=== PATIENT | female | born 1995 | race Caucasian/White ===

== ENCOUNTER 2021-02-25 11:10 | Emergency (ER) | payer OTHER, SELFPAY ==
--- NOTE | ~2021-02-25 | US_ITS ---
EXAMINATION: US pelvic complete EXAM DATE: 02/25/2021 12:59 INDICATION: right adnexal tenderness, eval for torsion. Abdominal cramping. TECHNIQUE: Pelvic transabdominal sonogram was performed. There are multiple grayscale and Doppler im ages available for interpretation. There is no prior study for comparison. FINDINGS: Uterus measures 8.8 x 4.5 x 6.0 cm, is anteverted and morphologically normal. Endometrial stripe measures 12 mm, within normal limits. There is no free pelvic fluid. Right adnexa: The ovary measures 2.2 x 1.4 x 1.5 cm and is morphologically normal. Ovarian vascular f low confirmed. Left adnexa: The ovary measures 1.6 x 1.2 x 1.1 cm and is morphologically normal. Ovarian vascular fl ow confirmed. IMPRESSION: 1. Unremarkable pelvic ultrasound exam. Reviewed, dictated and finalized at location A.
[2021-02-25 11:16] VITALS: BP 147/109; PULSE 101; RESP 18; TEMP 36.4; O2SAT 96
[2021-02-25 11:53] VITALS: BP 126/68; PULSE 62; RESP 16; TEMP 36.8; O2SAT 100
--- NOTE | 2021-02-25 11:57 | ED.ABDPAIN ---
HPI - Abdominal Pain General Chief Complaint: Abdominal Pain Stated Complaint: Menstral pain Time Seen by Provider: 02/25/21 11:57 Source: patient Mode of arrival: ambulatory Limitations: no limitations History of Present Illness HPI narrative: The patient is a 25 yo female , post pardum 3 months, presenting for evaluation of right lower quadrant pain. Pain is radiating into her right back. Pt denies chest pain or dyspnea. Patient also with starts of menses today. No heavy bleeding. Not soaking through one pad per hour. Pt reports mild cramping right lower quadrant pain. Pt reports mild nausea with subjective fever. No chills. No vomiting. No painful urination, frequency. No diarrhea or constipation. Pt without history of COVID or vaccination. Pt states cramping is increased from typical menstruation. This is second menses since delivery of infant three months ago. Pts OBGYN as [facility] is Dr. Keith. Pt states she has been sexually active. She has a history of chlamydia in 2018 that was treated. She is not using any contraception. Related Data Home Medications Medication Instructions Recorded Confirmed No Home Medications 02/25/21 02/25/21 Allergies Allergy/AdvReac Type Severity Reaction Status Date / Time codeine Allergy Unknown Unknown Verified 02/25/21 11:57 sweet potato Allergy Unknown Unknown Verified 02/25/21 11:57 Review of Systems Review of Systems: CONSTITUTIONAL: Denies fever, chills, or sweats. EYES: Denies visual changes, redness, or discharge. ENT: Denies rhinorrhea, congestion, sore throat, or otalgia. CARDIOVASCULAR: Denies chest pain, palpitations, or edema. RESPIRATORY: Denies cough or dyspnea. GASTROINTESTINAL: Reports abdominal pain GENITOURINARY: Denies dysuria or hematuria. Reports vaginal bleeding SKIN: Denies rash or itching. MUSCULOSKELETAL: Denies back pain, joint pain, or myalgia. NEUROLOGIC: Denies headache, numbness, or weakness. [facility] Social History Social History (Updated 02/25/21 @ 12:19 by Randa Desai MD) Smoking status: Never smoker Alcohol intake: never Substance use: never Gender identity (if verbalized by the patient): Female Exam Narrative: GENERAL: Awake, alert, conversant HEAD: Normocephalic, atraumatic. EYES: PERRLA and EOMI. ENT: Nares clear, no rhinorrhea or epistaxis. Mucous membranes moist. NECK: Supple. CHEST: No respiratory distress, breathing even and non labored HEART: Regular rate, sinus rhythm ABDOMEN:Non distended, mild tenderness, negative McBurney's point tenderness Labia majora and minora normal without lesions. Vagina with small amount of blood. No cervical motion tenderness. There is right and left adnexal tenderness, no other discharge present. EXTREMITIES: Normal range of motion. No edema. SKIN: Warm, dry, no rash. NEURO:No focal deficits. Alert and oriented x3 Course Vital Signs Vital signs: Vital Signs Temperature 36.4 C 02/25/21 11:16 Pulse Rate 101 H 02/25/21 11:16 Respiratory Rate 18 02/25/21 11:16 Blood Pressure 147/109 H 02/25/21 11:16 Pulse Oximetry 96 02/25/21 11:16 Temperature 36.8 C 02/25/21 11:53 Pulse Rate 88 02/25/21 13:44 Respiratory Rate 16 02/25/21 13:44 Blood Pressure 133/85 02/25/21 13:44 Pulse Oximetry 100 02/25/21 13:44 MDM - Abdominal Pain MDM Narrative Medical decision making narrative: Patient presenting for evaluation of vaginal bleeding and lower abdominal pain. At the time of assessment, ABCs are intact and vital signs are stable. Physical exam is notable for mild right lower quadrant abdominal pain without rebound or rigidity. Mild cramping pain in the suprapubic region. Patient is afebrile. Appendicitis seems unlikely given symptoms. Patient does have a mild leukocytosis. No significant anemia. On pelvic exam, there is no brisk bleeding. No large blood clots. Bedside urine test is positive. Patient has been sexually active, not currentl
--- NOTE | 2021-02-25 12:03 | PC.NURSE ---
pt reports RLQ cramping radiates down her right leg and is causing vaginal pressure. pt states she has scant amount of vaginal bleeding.
--- NOTE | 2021-02-25 12:11 | ECG_ITS ---
Measurements Intervals [place] Rate: 77 P: 36 FL: 121 QRS: 72 QRSD: 80 T: 41 QT: 401 QTc: 455 Interpretive Statements SINUS RHYTHM WITH MARKED SINUS ARRHYTHMIA BASELINE ARTIFACT- I, II, III, AVR, AVL, V1, V6 NORMAL ECG Electronically Signed On 02-25-2021 13:00:07 CDT by Jass Art D.O.
[2021-02-25 12:41] LABS: Basophils Percent Auto 0.3 % (0.2-1.2); Eosinophils Absolute Auto 0.1 K/mm3 (0-0.3); Eosinophils Percent Auto 0.8 % (0-4.4); Hematocrit 42.8 % (37.0-47.0); Hemoglobin 13.5 g/dL (12.0-15.0); Immature Granulocyte Absolute 0.06 K/mm3 (0.00-0.031); Immature Granulocyte Percent A 0.5 % (0-0.5); Lymphocytes Absolute Auto 1.41 K/mm3 (0.9-3.2); Mean Corpuscular HGB Conc 31.5 g/dl (32-36); Mean Corpuscular Hemoglobin 28.7 pg (26-34); Mean Corpuscular Volume 90.9 fl (80-100); Mean Platelet Volume 9.6 fl (7.4-10.4); Monocytes Absolute Auto 0.5 K/mm3 (0.1-0.6); Monocytes Percent Auto 4.2 % (2.6-8.5); Neutrophils Absolute Auto 9.7 K/mm3 (1.3-6.7); Neutrophils Percent Auto 82.2 % (45.5-73.1); Platelet Count Result 297 k/mm3 (150-375); Red Blood Count 4.71 M/mm3 (4.2-5.4); Red Cell Distribution Width 13.7 % (11.5-14.5); White Blood Count 11.8 K/mm3 (4.5-10.0)
[2021-02-25 13:10] LABS: Partial Thromboplastin Time 29.8 SECONDS (22.3-36.8); Prothrombin Time 12.8 Seconds (11.1-14.7)
[2021-02-25 13:13] LABS: Add Urine Microscopic? YES; Appearance Urine Cloudy (Clear); Bacteria Urine Trace /hpf; Bilirubin Urine Negative (Negative); Blood Urine 3+ (Negative); Color Urine Red (Yellow); Glucose Urine UA Negative (Negative); Ketones Urine 1+ mg/dL (Negative); Leukocyte Esterase Ur Trace LEU/UL (Negative); Mucus Urine Rare /lpf; Nitrate Urine Negative (Negative); Protein Urine 2+ mg/dL (Negative); RBC Urine 51-75 /hpf (0-2); WBC Urine 0-3 /hpf
[2021-02-25 13:14] LABS: Specific Grav Ur 1.031 (1.001-1.035)
[2021-02-25] MEDS: ACETAMINOPHEN 500 MG TABLET 1000 MG PO (13:14)
[2021-02-25] MEDS: SODIUM CHLORIDE 0.9% IV 1,000 ML 999 ML IV CONT (13:15)
[2021-02-25 13:28] LABS: Alanine Aminotransferase 22 U/L (4-35); Albumin Level 4.8 g/dL (3.5-5.1); Alkaline Phosphatase 106 U/L (38-126); Anion Gap 7 mmol/L (8-16); Aspartate Amino Transferase 30 U/L (14-36); Bilirubin,Total 0.6 mg/dL (0.2-1.3); Blood Urea Nitrogen 9 mg/dL (7-17); Calcium 9.6 mg/dL (8.4-10.2); Carbon Dioxide 23 mmol/L (22-30); Chloride 108 mmol/L (98-107); Estimated CRCL calculation 122 ml/min; Estimated Glomerular Filt Rate > 60; Glucose 116 mg/dL (65-110); Lipase 59 U/L (23-300); Potassium 4.3 mmol/L (3.4-5.0); Sodium 138 mmol/L (137-145)
[2021-02-25 13:44] VITALS: BP 133/85; PULSE 88; RESP 16; O2SAT 100
[2021-02-25 13:44] LABS: Beta HCG Quantitative 232.66 mIU/ML
[2021-02-25 13:59] LABS: Thyroid Stimulating Hormone 0.645 uIU/mL (0.465-4.680)
[2021-02-25 15:57] VITALS: BP 147/88; PULSE 79; RESP 16; O2SAT 98
== END 2021-02-25 16:00 | disposition home or self-care (01) ==
PROVIDERS: Emergency Provider Emergency Medicine; PCP Internal Medicine
DX: O46.90 Antepartum hemorrhage, unspecified, unspecified trimester (principal); Z3A.00 Weeks of gestation of pregnancy not specified
CPT/HCPCS: 36415; 76856; 80053; 81001; 81025; 83690; 84443; 84702; 85025; 85461; 85610; 85730; 87070; 87491; 87591; 87808; 93005; 96360; 99284; A9270; J7030

== ENCOUNTER 2021-04-23 09:51 | Emergency (ER) | payer OTHER, SELFPAY ==
[2021-04-23 10:03] VITALS: BP 140/70; PULSE 85; RESP 16; TEMP 36.3; O2SAT 99
--- NOTE | 2021-04-23 10:08 | ED.GENADULT ---
HPI - General Adult General Chief complaint: Dental/Oral Stated complaint: Tooth Pain Time Seen by Provider: 04/23/21 09:56 Source: patient Mode of arrival: ambulatory Limitations: no limitations History of Present Illness HPI narrative: 26 y/o female. PMHx none reported. Presents to [facility] today with acute complaints of RT upper dental pain, worsening in the past 48 hours. She reports increased dental pain and swelling, refractory to home and OTC remedies. No oral or dental trauma. No fevers, involuntary drooling. Pt is a daily cigarette smoker. She is not actively established with a dentist per report. No additional acute c/o illness upon PE. Related Data Allergies Allergy/AdvReac Type Severity Reaction Status Date / Time codeine Allergy Unknown Unknown Verified 04/23/21 10:07 sweet potato Allergy Unknown Unknown Verified 04/23/21 10:07 Review of Systems Review of Systems: CONSTITUTIONAL: Denies fever, chills, sweats. EYES: Denies visual changes, redness, discharge. ENT: Denies rhinorrhea, congestion, sore throat, otalgia. Positive Tooth/dental pain. CARDIOVASCULAR: Denies chest pain, palpitations, edema. RESPIRATORY: Denies dyspnea, wheezing, cough GASTROINTESTINAL: Denies abdominal pain, nausea, vomiting, diarrhea. GENITOURINARY: Denies dysuria, hematuria, abnormal discharge SKIN: Denies rash or itching. MUSCULOSKELETAL: Denies acute back pain, joint pain, or myalgia. NEUROLOGIC: Denies numbness, or focal weakness. PSYCHIATRIC: Denies anxiety or depression. All systems reviewed & are unremarkable except as noted in HPI and below PMFSH Social History Social History Smoking status: Never smoker Alcohol intake: never Substance use: never Gender identity (if verbalized by the patient): Female Exam Narrative: GENERAL: This is a well-nourished, well-developed adult, in no apparent distress. HEAD: normocephalic, atraumatic. EYES: PERRL. Sclera clear/white. EARS: External ears normal, auditory canals clear and without drainage, TMs normal. NOSE: External nose normal. THROAT: Mucous membranes moist, posterior pharynx clear. No exudates. MOUTH: With mild soft tissue swelling and tenderness surrounding molar #2. Widespread dental decay. No fluctuance or appreciable abscess to site. NECK: Neck supple, non-tender without lymphadenopathy, masses or thyromegaly. CARDIOVASCULAR: Regular rate and rhythm without murmurs, gallops, or rubs. RESPIRATORY: Clear to auscultation. GASTROINTESTINAL: Abdomen soft, non-tender, nondistended. SKIN: warm, intact with no suspicious lesions. NEURO: Alert, active, and age appropriate. No focal neurologic deficits. Course Vital Signs Vital signs: Vital Signs Temperature 36.3 C L 04/23/21 10:03 Pulse Rate 85 04/23/21 10:03 Respiratory Rate 16 04/23/21 10:03 Blood Pressure 140/70 04/23/21 10:03 Pulse Oximetry 99 04/23/21 10:03 Temperature 36.3 C L 04/23/21 10:03 Pulse Rate 85 04/23/21 10:03 Respiratory Rate 16 04/23/21 10:03 Blood Pressure 140/70 04/23/21 10:03 Pulse Oximetry 99 04/23/21 10:03 Medical Decision Making MDM Narrative Medical decision making narrative: -Dental pain, toothache. No appreciable fluctuance. -Start Amoxicillin regimen as directed. -NSAID PRN. Will give a short course only, of Ceiba prn for moderate to severe break-through pain only. Pt has a listed allergy to Codeine, however assures that she has taken Hydrocodone historically, and without complication or adverse reaction. -Smoking cessation is heavily advised. -Dentist F/U 1 WK. -ER W/Emergent health status changes. Pt agrees. Differential Diagnosis Differential Diagnosis: Differential Diagnosis: Consideration of the following conditions may be warranted for the presenting problem, they are not final diagnoses: Dental caries, periodontal disease, avulsed tooth, tooth in
== END 2021-04-23 10:13 | disposition home or self-care (01) ==
PROVIDERS: Emergency Provider Nurse Practitioner Adult Health
DX: K04.7 Periapical abscess without sinus (principal)
CPT/HCPCS: 99213; G0463

== ENCOUNTER 2021-07-11 14:08 | Emergency (ER) | payer OTHER, SELFPAY ==
[2021-07-11 14:18] VITALS: BP 127/70; PULSE 79; RESP 16; TEMP 37.2; O2SAT 100
--- NOTE | 2021-07-11 14:21 | ED.EYEPROB ---
HPI - Eye Problem General Chief complaint: Eye Problems Stated complaint: cant see Time Seen by Provider: 07/11/21 14:21 Source: patient, RN notes reviewed and old records reviewed Mode of arrival: ambulatory Limitations: no limitations History of Present Illness HPI Narrative: 26-year-old female presents to the [facility] after getting poked in the eye by her infant. Pain to the right eye. Happened approximately 2 hours prior to arrival. Related Data Allergies Allergy/AdvReac Type Severity Reaction Status Date / Time codeine Allergy Unknown Unknown Verified 04/23/21 10:07 sweet potato Allergy Unknown Unknown Verified 04/23/21 10:07 Review of Systems Review of Systems: All systems reviewed & are unremarkable except as noted in HPI and below Constitutional: Constitutional: Reports no additional constitutional complaints, Denies chills and Denies fever(s) Eyes: Eyes: Reports as per HPI, Denies change in vision and Reports photophobia ENT: Reports system reviewed and no additional complaints, except as documented, Denies dizziness, Denies epistaxis and Denies sore throat Cardiovascular: Cardiovascular: Reports no additional cardiovascular complaints and Denies chest pain Respiratory: Respiratory: Reports no additional respiratory complaints, Denies cough, Denies dyspnea and Denies wheezing Gastrointestinal: Gastrointestinal: Reports no additional gastrointestinal complaints, Denies abdominal pain, Denies nausea and Denies vomiting Musculoskeletal: Musculoskeletal: Reports no additional musculoskeletal complaints Integumentary/Breasts: Skin/Breast: Reports system reviewed and no additional complaints, except as docu Neurologic: Reports system reviewed and no additional complaints, except as documented and Denies headache(s) Psychiatric: Psychiatric: Reports no additional psychiatric complaints Allergic/Immunologic: Allergic/Immunologic: Reports no additional allergic/immunologic complaints [facility] Past Medical History Medical History No pertinent past medical history Surgical History Surgical History (Updated 07/11/21 @ 19:35 by Darlene Manzanares) History of tonsillectomy Social History Social History Smoking status: Never smoker Alcohol intake: never Substance use: never Gender identity (if verbalized by the patient): Female Comments At the time of my signature, I reviewed and agree with the nursing past medical, surgical, social, and family history. There is no relevant family history pertinent to the patient complaint. Exam Const: General: cooperative, healthy appearing, no acute distress, well developed, alert and acute distress (Pain) mild Nutritional Appearance: well nourished Orientation/consciousness: patient oriented x3 Limitations: no limitations HENMT: Head: normal to inspection Ears: hearing grossly normal bilaterally General nose exam: Normal external nose present, Normal nares present and Normal nasal mucous membranes and turbinates present Face and sinus: normal facial exam Mouth: Yes Normal oral and palatal mucosa present Throat: posterior oropharynx normal Eyes: Conjunctivae: conjunctivae normal Cornea: corneas abnormal on the right fluorescein used and abrasion curved Pupils: Equal, round and reactive pupils present EOM: EOMs intact bilaterally Eyes/upper lids images: 1. Corneal abrasion Neck: Neck: normal visual inspection, no lymphadenopathy and no meningeal signs Chest: Chest palpation & inspection: normal inspection of the chest Resp: Effort & Inspection: normal respiratory effort and no use of accessory muscles Auscultation: clear to auscultation bilaterally, no crackles, no rales, no rhonchi and no wheezes Cardio: Rate: regular rate Rhythm: regular rhythm Back/Spine/Pelvis: Back: no CVA tenderness Skin: General skin exam: normal color Rashes: no rashes Wound
[2021-07-11] MEDS: TETANUS,DIPHTHERIA,AC PERTUSSIS ADULT (0.5 ML) BOOSTRIX IM (14:36)
== END 2021-07-11 14:46 | disposition home or self-care (01) ==
PROVIDERS: Emergency Provider Nurse Practitioner
DX: S05.01XA Injury of conjunctiva and corneal abrasion without foreign body, right eye, initial encounter (principal); W50.0XXA Accidental hit or strike by another person, initial encounter; Z23 Encounter for immunization
CPT/HCPCS: 90471; 90715; 99213; A9270; G0463